=== PATIENT | female | born 1935 | race Two or more races ===

== ENCOUNTER 2018-06-06 11:49 | Outpatient (CLI) | payer OTHER | END 2018-06-06 12:58 | disposition home or self-care (01) | LOC: MRI 11:49 | DX: M54.17 Radiculopathy, lumbosacral region (principal); M51.27 Other intervertebral disc displacement, lumbosacral region | CPT/HCPCS: 72148 ==

== ENCOUNTER 2020-03-10 08:19 | Outpatient (CLI) | payer OTHER | END 2020-03-10 08:26 | disposition home or self-care (01) | LOC: RAD 08:19 | PROVIDERS: ATTEND Psychiatry & Neurology Neurology | DX: G44.1 Vascular headache, not elsewhere classified (principal); R13.19 Other dysphagia; G93.89 Other specified disorders of brain; G31.84 Mild cognitive impairment of uncertain or unknown etiology; M54.12 Radiculopathy, cervical region | CPT/HCPCS: 70551 ==

== ENCOUNTER 2021-05-06 09:44 | Outpatient (CLI) | payer OTHER | END 2021-05-06 09:54 | disposition home or self-care (01) | LOC: MRI 09:44 | PROVIDERS: ATTEND Physical Medicine & Rehabilitation | DX: M54.17 Radiculopathy, lumbosacral region (principal) | CPT/HCPCS: 72148 ==

== ENCOUNTER 2024-02-25 10:30 | Emergency (ER) | payer OTHER ==
[~2024-02-25] VITALS: Ht 162.6 cm; Wt 44.5 kg
[2024-02-25] MEDS ORDERED: LOSARTAN POTAS100 MG PO (10:59)
[2024-02-25] MEDS ORDERED: SYNTHROID75 MCG PO (10:59)
[2024-02-25] MEDS ORDERED: JARDIANCE10 MG PO (10:59)
[2024-02-25] MEDS ORDERED: CEFTRIAXONE SODIUM 1,000 MG VIAL IM STA (11:36)
[2024-02-25] MEDS ORDERED: TETANUS & DIPHTHERIA TOX,ADULT 0.5 ML VIAL IM STA (11:36)
[2024-02-25] MEDS ORDERED: CEFTRIAXONE SODIUM 1,000 MG VIAL ONE (11:45)
[2024-02-25] MEDS ORDERED: TETANUS DIPHTHERIA TOX. ADSOR 5 ML VIAL IM ONE (11:45)
== END 2024-02-25 12:07 | disposition home or self-care (01) ==
LOC: ER 10:32
DX: L03.019 Cellulitis of unspecified finger (principal); Z88.1 Allergy status to other antibiotic agents; Z88.6 Allergy status to analgesic agent; Z91.041 Radiographic dye allergy status
CPT/HCPCS: 90471; 90714; 96372; 99282; J0696; J1670